=== PATIENT | female | born 1995 | race Two or more races ===

== ENCOUNTER 2022-08-02 21:25 | Emergency (ER) | payer OTHER ==
[~2022-08-02] VITALS: Ht 175.3 cm; Wt 74.8 kg
== END 2022-08-02 23:51 | disposition home or self-care (01) ==
LOC: ER 21:25
DX: J00 Acute nasopharyngitis [common cold] (principal); R51.9 Headache, unspecified; Z20.822 Contact with and (suspected) exposure to COVID-19